=== PATIENT | male | born 1960 | race Caucasian/White ===

== ENCOUNTER 2017-06-15 06:47 | Observation (INO) | payer BC, OTHER ==
[~2017-06-15] VITALS: Ht 177.8 cm; Wt 127.0 kg
[2017-06-15] VITALS (11 sets, daily range): BP systolic 108–135; BP diastolic 45–92
--- NOTE | ~2017-06-15 | CATHLAB ---
"[facility] [address] [place] [address] INVASIVE PROCEDURE REPORT Name: AUGUSTO BEE Room #: 204-P [facility] [place] .#: [id number] Admission: 06/15/17 Attend Phys: Sher Jeronimo, Discharge: Date of : 58 Date of Service: 06/15/17 1900 Report #: [id number] THIS REPORT FOR: //name// APPROVED REPORT Patient Details Patient Status: Out-Patient Room #: The patient is a 56 year-old male Event Personnel Sher Jeronimo Irs Agent, Jacqueline Lee RN RN, Miguel Ángel Riley RN, Mary Avila Sandifer, David Monitor, Angie Boone Monitor Procedures Performed ALISSA Revasc Graft Single OM C9604 SVGREVSING Procedure Narrative The Right Groin^ was infiltrated with 1% Lidocaine subcutaneous anesthesia. A PINNACLE 6FR Sheath #[id number] sheath was inserted into the RFA^. Coronary angiography was performed using coronary diagnostic catheters. The right coronary system was accessed and visualized with a JR4 catheter. The left coronary system was accessed and visualized with a JL4 catheter. The left ventricle was accessed and visualized with a PIGTAIL catheter. An aortogram of the abdominal aorta was performed. Intraoperative Conscious Sedation Sedation start time: 9:00 Case end Time: 9:37 Fluoro Time: 12.08 minutes Dose: 1931 mGy Contrast Type and Amount: Omnipaque 245 ml Hemodynamics The aortic pressure is 145/85 mmHg with a mean of 94 mmHg. The left ventricular pressure is 150/10 mmHg with a mean of mmHg. PCI Technique Lesion Percutaneous coronary intervention was performed on the first obtuse marginal branch segment. A 3DRC Guide Catheter was used to engage the JANIS ostium. A LUGE Interventional Guidewire was used to cross the lesion. BALLOON DILATION [facility] [address] [place] [address] INVASIVE PROCEDURE REPORT Name: AUGUSTO BEE Room #: 204-P [facility] [place] ..#: [id number] Admission: 06/15/17 Attend Phys: Sher Jeronimo, Discharge: Date of : 58 Date of Service: 06/15/17 1900 Report #: [id number] A Balloon catheter 2.5X12 SPRINTER was inserted and inflated up to 6.00atm for 19seconds. Additional Inflation: 8.00atm for 23seconds. STENT DEPLOYMENT A drug-eluting stent RESOLUTE 2.75X12 was inserted and inflated up to 12.00atm for 28seconds. Additional Inflation: 14.00atm for 22seconds. Conclusion #1 successful PTCA stent drug-eluting circumflex OM branch filled via a intact JANIS 98% proximal OM after the anastomosis dilated and stented to 0% residual with a 27 5 x 12 resolute drug-eluting stent postdilated 3.0 mm GORDO grade 3 flow no dissection or thrombus formation #2 normal left ventricular size and systolic function #3 small abdominal aortic aneurysm will need further noninvasive evaluation with CT and or ultrasound. Renal arteries are widely patent #4 left main mild distal tapered narrowing giving rise to LAD and circumflex #5 circumflex OM mid vessel stent previously stented is minimal restenosis filling the distal OM system a proximal OM system is occluded natively and that is the JANIS to OM stent that was placed. Proximal circumflex has 50-60% eccentric lesion unchanged from prior exam #6 LAD occludes proximally #7 ANDRADE to LAD is intact the LAD is diffusely diseased competitively filling the septal and some distal filling to a PDA. No occlusive disease noted in the ANDRADE diffuse disease in the LAD system and relatively small caliber #8 [place] right is occluded #9 SVG to RCA occluded from prior exam Indications and plan continue aggressive risk factor modification dual antiplatelet therapy indefinitely will add Effient to this regimen. Transfer to CCU following post-stent protocol. No MRI or dental work for 3 months [place] or [place] for one week <ELECTRONICALLY SIGNED> By: Sher Jeronimo MD, FACC 06/15/171899 99 99 Sher Jeronimo MD, FACC /INF"
--- NOTE | ~2017-06-15 | EKG ---
[place] [address] [address] [facility] [place] [address] ELECTROCARDIOGRAM REPORT Name: AUGUSTO BEE Room #: 204-P [facility] M.R.#: [id number] Admission: 06/15/17 Attend Phys: Sher Jeronimo MD, Discharge: Date of : 58 Report #: [id number] THIS REPORT FOR: //name// [facility] Test Date: 2017-06-16 Test Time: 06:25:19 Pat Name: AUGUSTO BEE Department: Room: 204 Gender: M Back Maker: LUIS M : 1960 Requested By: Sher Jeronimo Order Number: [id number] MD: Nuno Rowe Measurements Intervals [place] Rate: 69 P: 66 FL: 203 QRS: 69 QRSD: 94 T: 65 QT: 412 QTc: 442 Interpretive Statements Sinus rhythm Borderline prolonged FL interval Low voltage, extremity leads Compared to ECG 03/18/2013 11:32:38 No significant change was found Electronically Signed On 06-16-2017 9:26:38 CDT by Nuno Rowe [email or web address] <ELECTRONICALLY SIGNED> By: Nuno Rowe MD, [facility] 06/16/1726 4 4 Nuno Rowe MD, [facility] /EPI
[~2017-06-15 06:47] MED LIST: ACCUPRIL40 MG PO; ASPIRIN325 PO; BYSTOLIC10 MG PO; CADUET 5 MG; CLONAZEPAM 1 MG1 M1; EFFIENT10 MG PO; FISH OIL 1,0001 EAC5; LIPITOR80 MG PO; LISINOPRIL10 MG; NITROSTAT0.4 MG SL; PLAVIX 75 MG TA75 MG
[2017-06-15] MEDS ORDERED: RAPAFLO8 MG PO (07:24)
[2017-06-15] MEDS ORDERED: LEXAPRO20 MG PO (07:25)
[2017-06-15] MEDS ORDERED: PLAVIX 75 MG TA75 M1 PO (07:26)
[2017-06-15] MEDS ORDERED: ZETIA10 MG PO ×2 (07:27→07:28)
[2017-06-15 07:32] LABS: HEMATOCRIT 40.4 % (42.0-52.0); HEMOGLOBIN 13.9 gm/dL (14.0-18.0); MCHC 34.3 g/dL (28.0-37.0); MCV 87.5 fL (80.0-100.0); RBC 4.62 mil/uL (4.50-6.00); RDW 13.9 % (10.5-14.5); WBC 5.4 thou/uL (4.0-11.0)
[2017-06-15 07:40] LABS: CALCIUM 8.3 mg/dL (8.5-10.1); CREATININE 0.9 mg/dL (0.7-1.3); POTASSIUM 4.2 mmol/L (3.5-5.1)
[2017-06-15 07:46] LABS: PROTIME 9.8 Seconds (9.3-11.4)
[2017-06-16 04:12] VITALS: BP 108/70
[2017-06-16 07:10] VITALS: BP 110/70
[2017-06-16 07:13] VITALS: BP 108/70
[2017-06-16 07:15] VITALS: BP 108/70
[2017-06-16] MEDS ORDERED: EFFIENT10 MG PO (07:51)
[2017-06-16] MEDS ORDERED: ASPIRIN325 PO (07:54)
== END 2017-06-16 09:45 | disposition home or self-care (01) ==
LOC: CATH 06:47 → 2N 10:20
PROVIDERS: Internal Medicine Cardiovascular Disease
DX: R07.89 Other chest pain (principal); I25.10 Atherosclerotic heart disease of native coronary artery without angina pectoris; I10 Essential (primary) hypertension; E78.00 Pure hypercholesterolemia, unspecified; F41.9 Anxiety disorder, unspecified; N40.0 Benign prostatic hyperplasia without lower urinary tract symptoms; G47.00 Insomnia, unspecified; Z72.89 Other problems related to lifestyle; Z95.1 Presence of aortocoronary bypass graft; Z87.891 Personal history of nicotine dependence

== ENCOUNTER → 2020-06-12 | Outpatient (CLI) | payer OTHER ==
[~2020-06-12] MED LIST changes: +LEXAPRO20 MG PO; +PLAVIX 75 MG TA75 M1 PO; +RAPAFLO8 MG PO; +ZETIA10 MG PO
== END ==
LOC: SJCVCIMAG 07:21
PROVIDERS: ATTEND Internal Medicine Cardiovascular Disease
DX: I71.4 Abdominal aortic aneurysm, without rupture (principal); I25.10 Atherosclerotic heart disease of native coronary artery without angina pectoris; E78.5 Hyperlipidemia, unspecified; I10 Essential (primary) hypertension; E66.9 Obesity, unspecified; Z79.899 Other long term (current) drug therapy; Z87.891 Personal history of nicotine dependence